=== PATIENT | female | born 1955 ===

== ENCOUNTER 2021-08-25 05:05 | Day surgery (SDC) | payer OTHER ==
[~2021-08-25 05:05] MED LIST: AMBIEN10 MG PO; CLONAZEPAM0.5 MG PO; D3 + K2 DOTS 11 EACH PO; DICLOFENAC SOD100 GM TOP; LIPITOR20 MG PO; LOSARTAN POTASS25 MG PO; PROTONIX40 MG PO; RASUVO 12.12.5 MG/0. SUBCUTANEO; ULTRAM50 MG PO
[2021-08-25] MEDS ORDERED: PERCOCET 5-3251 EACH PO (08:26)
[2021-08-25] MEDS ORDERED: RECTICARE30 GM TOP (08:27)
== END 2021-08-25 11:00 | disposition home or self-care (01) ==
LOC: CIR.AMB 05:05
PROVIDERS: ATTEND Surgery
DX: K62.0 Anal polyp (principal); I10 Essential (primary) hypertension; Z87.891 Personal history of nicotine dependence; K21.9 Gastro-esophageal reflux disease without esophagitis; G43.909 Migraine, unspecified, not intractable, without status migrainosus; M79.7 Fibromyalgia; F41.0 Panic disorder [episodic paroxysmal anxiety]; Z20.822 Contact with and (suspected) exposure to COVID-19